=== PATIENT | male | born 1940 | race Caucasian/White ===

== ENCOUNTER 2017-09-30 06:49 | Outpatient (CLI) | payer OTHER ==
[~2017-09-30 06:49] MED LIST: SYNTHROID50 MCG
== END 2017-09-30 06:55 | disposition home or self-care (01) ==
LOC: LAB 06:49
DX: D64.89 Other specified anemias (principal); N39.0 Urinary tract infection, site not specified; E03.8 Other specified hypothyroidism; E78.4 Other hyperlipidemia

== ENCOUNTER 2018-04-07 07:05 | Outpatient (CLI) | payer OTHER | END 2018-04-07 07:16 | disposition home or self-care (01) | LOC: LAB 07:05 | DX: E11.9 Type 2 diabetes mellitus without complications (principal); E78.1 Pure hyperglyceridemia; I11.9 Hypertensive heart disease without heart failure ==

== ENCOUNTER 2018-11-18 17:01 | Inpatient (IN) | payer OTHER ==
[~2018-11-18] VITALS: Wt 5.0 kg
[2018-11-18] MEDS ORDERED: INDAPAMIDE1.25 MG (17:13)
[2018-11-18] MEDS ORDERED: SYNTHROID75 MCG (17:13)
--- NOTE | 2018-11-18 17:16 | NUR ---
SE RECIBE PTE EL CUAL REFIERE VENIR POR DOLOR ABDOMINAL EN CUADRANTE STEFANO. PTE PRESENTA EVIDENCIA DE CBC EL CUAL APARERA CON WBC ELEVADOS. SE MIDEN S/V A PTE, PTE DE MICAELA. ELLA IVORY. PTE SE ACOMODA EN AREA DE OBSERVACION.
--- NOTE | 2018-11-18 18:56 | NUR ---
PACIENTE ALERTA Y ORIENTADO EVALUADO POR EL DR. GUERRA SE ORIENTA A PACIENTE SOBRE TRATAMIENTO MEDICO SE EXTRAEN MUESTRAS DE JULIO Y SE ADMINISTRAN MEDICAMENTOS SEFUN ORDEN MEDICA BAJO MEDIDAS ASEPTICAS. PACIENTE PENDIENTE CT ABDOMINO PELVICO.
--- NOTE | 2018-11-19 | NUR ---
SE RECIBE PACIENTE EN OMAR CON MEDIDAS DE SEGURIDAD, ALERTA CONSCIENTE Y ORIENTADOX3, PRESENTANDO BUEN PATRON RESPIRATORIO. IVFLUIDS PATENTES MIGUEL VON DE EDEMA Y ENROJECIMIENTO. PTE NPO. VON DE DOLOR AL MOMENTO. EN ESPERA DE SER VISTO EN CONSULTA POR MEDICINA INTERNA.
--- NOTE | 2018-11-19 07:52 | NUR ---
SE RECIBE PACIENTE DE TURNO ANTERIOR.MASCULINODE 77 ANOS,ALERTA,ORIENTADO POR 3 ESFERAS,DESCANSANDO EN CAMA NIVEL MAS BAJO,BARANDAS ELEVADAS,FRENOS,MITCHELL DE IDENTIFICACION COLOCADOS POR SEGURIDAD. IVFLUIDS PATENTE. AREA DE VENOPUNCION LIMPIA,SECA,VON DE S/S EDEMA Y/O ERIEMA.
--- NOTE | 2018-11-19 07:58 | NUR ---
PACIENTE ALERTA Y ORIENTADO X3. EN POSICION SEMI-SENTADO EN CAMA CON BARANDAS ELEVADAS Y INTERCOM ACCESIBLE. IV FLUID PATENTE Y VON DE EDEMA Y ERITEMA. PACIENTE CONSULTADO CON DR. ROSA SCHMITZ. PERMANECE NPO AL MOMENTO. SE MANTIENE BAJO OBERVACION POR CAMBIOS SIGNIFICATIVOS.
[2018-11-24] MEDS ORDERED: CIPRO500 MG PO (12:58)
[2018-11-24] MEDS ORDERED: LEVOTHYROXINE75 MCG PO (12:58)
[2018-11-24] MEDS ORDERED: INDAPAMIDE1.25 MG PO (12:58)
[2018-11-24] MEDS ORDERED: ACIDOPHILUS-PE1 EAC2 PO (12:58)
[2018-11-24] MEDS ORDERED: FLAGYL500MG PO (12:58)
[2018-11-24] MEDS ORDERED: TAMSULOSIN HCL0.4 MG PO (12:58)
== END 2018-11-24 14:13 | disposition home or self-care (01) | DRG 392 ==
LOC: ER 17:01 → MEDJ 11-19 10:44
PROVIDERS: ADMIT Internal Medicine
PROC: BD4CZZZ Ultrasonography of Rectum (ICD-10-PCS; principal; 2018-11-22)
DX: K57.32 Diverticulitis of large intestine without perforation or abscess without bleeding (principal); E86.0 Dehydration; E87.8 Other disorders of electrolyte and fluid balance, not elsewhere classified; K59.09 Other constipation; I10 Essential (primary) hypertension; E03.8 Other specified hypothyroidism; N40.0 Benign prostatic hyperplasia without lower urinary tract symptoms; K57.30 Diverticulosis of large intestine without perforation or abscess without bleeding

== ENCOUNTER → 2018-12-09 06:34 | Outpatient (CLI) | payer OTHER ==
[~2018-12-09 06:34] MED LIST changes: +ACIDOPHILUS-PE1 EAC2 PO; +CIPRO500 MG PO; +FLAGYL500MG PO; +INDAPAMIDE1.25 MG; +INDAPAMIDE1.25 MG PO; +LEVOTHYROXINE75 MCG PO; +SYNTHROID75 MCG; +TAMSULOSIN HCL0.4 MG PO
== END | disposition home or self-care (01) ==
LOC: LAB 06:34
DX: D50.8 Other iron deficiency anemias (principal); E11.9 Type 2 diabetes mellitus without complications; E03.8 Other specified hypothyroidism; N40.0 Benign prostatic hyperplasia without lower urinary tract symptoms; B34.8 Other viral infections of unspecified site; N39.0 Urinary tract infection, site not specified; E78.49 Other hyperlipidemia; E55.9 Vitamin D deficiency, unspecified

== ENCOUNTER 2019-06-29 06:38 | Outpatient (CLI) | payer OTHER | END 2019-06-29 06:42 | disposition home or self-care (01) | LOC: LAB 06:38 | DX: D50.0 Iron deficiency anemia secondary to blood loss (chronic) (principal); E11.9 Type 2 diabetes mellitus without complications; E78.2 Mixed hyperlipidemia; E03.8 Other specified hypothyroidism; N40.0 Benign prostatic hyperplasia without lower urinary tract symptoms; E55.9 Vitamin D deficiency, unspecified; N39.0 Urinary tract infection, site not specified; R19.5 Other fecal abnormalities; Z12.11 Encounter for screening for malignant neoplasm of colon ==